=== PATIENT | female | born 1975 ===

== ENCOUNTER 2019-05-24 15:05 | Emergency (ER) | payer OTHER ==
[~2019-05-24] VITALS: Ht 165.1 cm; Wt 65.8 kg
[2019-05-24] MEDS ORDERED: VOLTAREN-XR100 MG PO (18:41)
[2019-05-24] MEDS ORDERED: PERCOCET 5-3251 EACH PO (18:41)
[2019-05-24] MEDS ORDERED: SKELAXIN800 MG PO (18:41)
[2019-05-24] MEDS ORDERED: GABAPENTIN300 MG PO (18:41)
== END 2019-05-24 18:54 ==
LOC: ER 15:05
DX: M54.2 Cervicalgia (principal); M79.601 Pain in right arm